=== PATIENT | female | born 1985 | race Caucasian/White ===

== ENCOUNTER 2018-05-02 16:12 | Emergency (ER) | payer OTHER ==
[~2018-05-02] VITALS: Ht 172.7 cm; Wt 63.5 kg
--- NOTE | 2018-05-02 16:15 | NUR ---
AAOX3, BIB FAMILY C/O NON RADIATING LEFT SIDE CHEST PAIN, CONSTANT PAIN X 1 HR 27 WEEKS , A1. RR IS EVEN AND UNLABORED WITH NAD NOTED. SKIN IS WARM AND DRY. PLACED ON THE MONITOR. AWAITING MD FOR EVAL.
--- NOTE | 2018-05-02 16:50 | NUR ---
IV ACCESS STARTED. BLOOD DRAWN FOR LABS. MEDICATED ORDERED.
[2018-05-02] MEDS ORDERED: IV NS 0.9% 1,000 ML IV ONE (17:00)
[2018-05-02 17:13] LABS: BASOPHILS % (AUTO) 0.3 % (0.0-2.0); HEMATOCRIT 34 % (33-45); HEMOGLOBIN 11.9 g/dL (11.5-14.8); LYMPHOCYTES % (AUTO) 17.2 % (20.0-44.0); MEAN CORPUSCULAR HEMOGLOBIN 31 PG (26.0-33.0); MEAN CORPUSCULAR HGB CONC 35 g/dl (31.0-36.0); MEAN CORPUSCULAR VOLUME 89 fL (82-100); MONOCYTES # (AUTO) 0.7 /CMM (0.1-1.30); NEUTROPHILS # (AUTO) 8.9 /CMM (1.8-8.9); NEUTROPHILS % (AUTO) 74.5 % (43.0-81.0); PLATELET COUNT (AUTO) 199 /CMM (150-450); RDW COEFFICIENT OF VARIATION 12.7 (11.5-15.0); RED BLOOD CELL COUNT(AUTO) 3.86 MIL/uL (4.0-5.2); WHITE BLOOD COUNT (AUTO) 11.8 K/uL (4.3-11.0)
[2018-05-02 17:23] LABS: CALCIUM, SERUM 8.9 mg/dL (8.5-10.1); CREATININE 0.7 mg/dL (0.6-1.3); POTASSIUM 3.5 mmol/L (3.5-5.1)
[2018-05-02 17:38] LABS: D-DIMER 4.04 mg/L(FEU (0.17-0.50); INR 0.89 (0.87-1.13)
[2018-05-02] MEDS ORDERED: IV NS 0.9% 250 ML IV ONE (18:29)
[2018-05-02] MEDS ORDERED: CT SWABBABLE VALVE TRANS SET 1 EA INFUS.SET MC ONE (18:29)
[2018-05-02] MEDS ORDERED: IOHEXOL-350 100 ML VIAL IV ONE (18:29)
--- NOTE | 2018-05-02 18:50 | NUR ---
PT TAKEN TO CT.
--- NOTE | 2018-05-02 19:09 | NUR ---
REPORT GIVEN TO DINA LAND FOR SHAHRAM.
--- NOTE | 2018-05-02 19:19 | NUR ---
received report from larissa magallanes for eddy.
[2018-05-02] MEDS ORDERED: IV NS 0.9% 1,000 ML IV PRN (20:00)
--- NOTE | 2018-05-02 21:04 | NUR ---
Patient discharged to home in stable condition. Written and verbal after care instructions given. Patient verbalizes understanding of instruction.IV removed. Catheter intact and site benign. Pressure and 4x4 applied to site. No bleeding noted. VSS UPON DISCHARGE
[2018-05-02 21:05] VITALS: BP 125/90
== END 2018-05-02 21:06 | disposition home or self-care (01) ==
LOC: ER 16:17
DX: O26.892 Other specified pregnancy related conditions, second trimester (principal); R07.89 Other chest pain; Z87.891 Personal history of nicotine dependence; Z3A.27 27 weeks gestation of pregnancy
CPT/HCPCS: 36415; 71275; 80048; 84702; 85025; 85378; 85730; 93970; 99285; A4606; J7030 ×2; J7050; Q9967; Z7610

== ENCOUNTER 2018-05-14 09:22 | Emergency (ER) | payer OTHER ==
[~2018-05-14] VITALS: Ht 172.7 cm; Wt 63.5 kg
[2018-05-14 09:29] VITALS: BP 110/72
== END 2018-05-14 10:31 | disposition home or self-care (01) ==
LOC: ER 09:23
DX: O26.893 Other specified pregnancy related conditions, third trimester (principal); R25.2 Cramp and spasm; O99.333 Smoking (tobacco) complicating pregnancy, third trimester; F17.200 Nicotine dependence, unspecified, uncomplicated; Z3A.29 29 weeks gestation of pregnancy
CPT/HCPCS: 93970-TC; A4606; Z7610